=== PATIENT | female | born 1945 | race Caucasian/White ===

== ENCOUNTER 2018-09-30 17:51 | Emergency (ER) | payer MEDICARE ==
[~2018-09-30] VITALS: Ht 177.8 cm; Wt 70.0 kg
[2018-09-30 18:18] LABS: HEMOGLOBIN 11.8 g/dl (12.0-16.0); IMMATURE GRANULOCYTES 0.3 % (0.0-5.0); MEAN CELL VOLUME 81.5 fL CALC (80.0-100.0); MEAN CORPUSCULAR HGB 25.3 pG CALC (26.0-32.0); MEAN CORPUSCULAR HGB CONC 31.1 g/L CALC (32.0-36.0); NEUT# 2.4 thou/uL (2.00-7.15); RED BLOOD COUNT 4.66 mill/uL (4.20-5.60); RED CELL DISTRI WIDTH 16.4 % (11.5-15.5)
[2018-09-30 18:33] LABS: ALBUMIN 3.5 g/dL (3.2-5.0); ALKALINE PHOSPHATASE 168 u/l (38-126); ANION GAP 17 (6-22 (CALC)); BILIRUBIN, TOTAL 0.5 mg/dL (0.0-1.4); BUN 19 mg/dL (8-23); BUN/CREATININE RATIO 15 (12-20 (CALC)); CARBON DIOXIDE 19 mmol/l (22-30); CHLORIDE 107 mmol/l (95-108); CREATININE 1.3 mg/dL (0.5-1.0); GFR 40 ML/MIN (>=60 (CALC)); GFR FOR AFR.AMER. 48 ML/MIN (>=60 (CALC)); POTASSIUM 3.3 mmol/l (3.5-5.1); SGOT/AST 24 u/l (9-36); SODIUM 139 mmol/l (137-146); TOTAL PROTEIN 6.5 g/dL (6.3-8.2)
[2018-09-30 18:46] LABS: MYOGLOBIN 106 ng/mL (0 - 62)
[2018-09-30] MEDS ORDERED: METOPROL TAR25 MG PO (18:49)
[2018-09-30] MEDS ORDERED: LISINOPRIL20 M1 PO (18:50)
[2018-09-30] MEDS ORDERED: IBUPROFEN600 MG PO (18:50)
[2018-09-30] MEDS ORDERED: ELIQUIS5 MG PO (18:51)
[2018-09-30] MEDS ORDERED: OMEPRAZOLE20 M1 PO (18:51)
[2018-09-30] MEDS ORDERED: ULTRAM50 M1 PO (18:53)
[2018-09-30] MEDS ORDERED: CYANOCOBAL1000 MCG/M IM (18:53)
[2018-09-30] MEDS ORDERED: NEURONTIN300 MG PO (18:54)
[2018-09-30] MEDS ORDERED: HYDROCHLOROT25 MG PO (18:55)
[2018-09-30] MEDS ORDERED: AMBIEN5 MG PO (20:16)
[2018-09-30] MEDS ORDERED: XANAX0.25 MG PO (20:17)
[2018-09-30] MEDS ORDERED: OMEPRAZOLE20 M2 PO (20:18)
[2018-09-30 21:09] LABS: URINE BILIRUBIN - DIPSTICK NEGATIVE (NEGATIVE); URINE BLOOD DIPSTICK SMALL (NEGATIVE); URINE COLOR YELLOW; URINE GLUCOSE - DIPSTICK NEGATIVE (NEGATIVE); URINE KETONE NEGATIVE (NEGATIVE); URINE LEUK ESTERASE NEGATIVE (NEGATIVE); URINE NITRITE - DIPSTICK NEGATIVE (Negative); URINE PH 5.5 (4.5-8.0); URINE PROTEIN - DIPSTICK TRACE mg/dL (NEG-TRACE); URINE UROBILINOGEN - DIPSTICK 0.2 E.U./dL (0.2)
[2018-09-30 21:25] LABS: URINE SQUAMOUS EPITHELIAL CELL FEW EPI/hpf (0-FEW); URINE WBC 0-2 WBC/hpf (0-5)
[2018-09-30 22:00] VITALS: BP 146/75
== END 2018-09-30 22:00 | disposition short-term general hospital (02) ==
LOC: ED 17:51
PROVIDERS: Emergency Medicine
PROC: 0T9B70Z Drainage of Bladder with Drainage Device, Via Natural or Artificial Opening (ICD-10-PCS; principal; 2018-09-30)
PROC: 0BH17EZ Insertion of Endotracheal Airway into Trachea, Via Natural or Artificial Opening (ICD-10-PCS; 2018-09-30)
DX: R55 Syncope and collapse (principal); I95.9 Hypotension, unspecified; E87.2 Acidosis; R11.13 Vomiting of fecal matter; R10.9 Unspecified abdominal pain; Z95.0 Presence of cardiac pacemaker
CPT/HCPCS: J2060